=== PATIENT | female | born 1995 ===

== ENCOUNTER 2024-08-30 07:54 | Inpatient (IN) | payer OTHER ==
[~2024-08-30] VITALS: Ht 172.7 cm; Wt 107.0 kg
[2024-08-30] MEDS ORDERED: LACTATED RINGER'S 1,000 ML IV SCH (08:00)
[2024-08-30] MEDS ORDERED: OXYTOCIN/0.9 % SODIUM CHLORIDE 500 ML IV SCH ×2 (08:00→16:15)
[2024-08-30] MEDS ORDERED: MAGNESIUM HYDROXIDE/AL HYDROX 30 ML CUP PO PRN ×2 (08:00→16:15)
[2024-08-30] MEDS ORDERED: LACTATED RINGER'S 1,000 ML IV PRN (08:00)
[2024-08-30] MEDS ORDERED: CALCIUM CARBONATE 500 MG CHEW PO PRN ×2 (08:00→16:15)
[2024-08-30 08:58] LABS: HEMATOCRIT 32.4 % (35.0-50.0); HEMOGLOBIN 10.9 g/dL (12.0-18.0); MCH 26.5 (27-36); MCHC 33.6 g/dl (30-36); MCV 78.9 fl (81-99); RBC 4.1 M/ul (4.3-5.7); RDW 13.8 (10.5-15.0)
[2024-08-30 10:19] LABS: ABO A; ANTIBODY SCREEN NEGATIVE; RH POSITIVE
[2024-08-30 10:27] LABS: AMPHETAMINES, URINE NEGATIVE (NEGATIVE); BARBITURATES, URINE NEGATIVE (NEGATIVE); BENZODIAZEPINE, URINE NEGATIVE (NEGATIVE); BUPRENORPHINE, URINE NEGATIVE (NEGATIVE); CANNABINOID, URINE NEGATIVE (NEGATIVE); COCAINE, URINE NEGATIVE (NEGATIVE); ECSTASY, URINE NEGATIVE (NEGATIVE); FENTANYL, URINE NEGATIVE (NEGATIVE); METHADONE, URINE NEGATIVE (NEGATIVE); OPIATES, URINE NEGATIVE (NEGATIVE); OXYCODONE, URINE NEGATIVE (NEGATIVE); PHENCYCLIDINE, URINE NEGATIVE (NEGATIVE)
[2024-08-30 11:05] LABS: IS CROSSMATCH COMPATIBLE
[2024-08-30 11:06] LABS: IS CROSSMATCH COMPATIBLE
[2024-08-30 12:19] LABS: ABO A; RH POSITIVE
[2024-08-30 12:46] VITALS: BP 133/74
[2024-08-30] MEDS ORDERED: TRANEXAMIC ACID IN NACL,ISO-OS 100 ML IV ONE (13:09)
[2024-08-30] MEDS ORDERED: IBUPROFEN 600 MG TAB PO PRN (16:15)
[2024-08-30] MEDS ORDERED: ACETAMINOPHEN 325 MG TAB PO PRN (16:15)
[2024-08-30] MEDS ORDERED: MAGNESIUM HYDROXIDE 30 ML UDC PO PRN (16:15)
[2024-08-30] MEDS ORDERED: HYDROCORTISONE ACETATE 25 MG SUPP PR PRN (16:15)
[2024-08-30] MEDS ORDERED: BENZOCAINE 60 ML AEROSOL TOP PRN (16:15)
[2024-08-30] MEDS ORDERED: WITCH HAZEL/GLYCERIN 1 EA PAD TOP PRN (16:15)
[2024-08-30] MEDS ORDERED: SENNOSIDES/DOCUSATE 1 EA TAB PO SCH (21:00)
[2024-08-31 06:28] LABS: HEMOGLOBIN 10.2 g/dL (12.0-18.0); MCHC 34.1 g/dl (30-36); MCV 79.1 fl (81-99); RBC 3.8 M/ul (4.3-5.7); RDW 14.2 (10.5-15.0)
--- NOTE | 2024-08-31 08:47 | PR ---
[facility] [address] [facility] [place], [place] [address] Signed PP Progress Notes Datetime Report Generated by CPN: 08/31/2024 08:47 SUBJECTIVE: [id number] Pain: Within Normal Limits Nausea/Vomiting: Denies Flatus: Yes Vital Signs: [id number] Vital Signs: Reviewed; Within Normal Limits EXAM: Ongoing Cardiovascular: Normal Respiratory: Not Done Abdomen/Uterus: Normal Lochia: Normal Vulva/Perineum: Normal Breasts: Normal CVA Tenderness: Not Done Extremities: Normal Incision: Not Applicable Progress: Normal IMPRESSION/PLAN/PROCEDURES: [id number] Impression: Normal Progression Plan: Continue Present Management; Discharge Progress Notes: Recovering well. Pain and lochia WNL. Desires D/C home Signing Physician: Megan Barrientos MD Copies: ~ *Electronically Signed* 08/31/24 0847 MEGAN BARRIENTOS MD PATIENT NAME: HELEN PEREZ PROGRESS NOTE DATE OF : 94 PHYSICIAN: MEGAN BARRIENTOS MD RPT #: [id number] REPORT IS CONFIDENTIAL AND NOT TO BE RELEASED WITHOUT AUTHORIZATION
== END 2024-08-31 16:45 | disposition home or self-care (01) | DRG 807 ==
LOC: FBC 07:54
PROVIDERS: ADMIT Obstetrics & Gynecology; ATTEND Obstetrics & Gynecology
PROC: 10E0XZZ Delivery of Products of Conception, External Approach (ICD-10-PCS; principal; 2024-08-30)
PROC: 0UQGXZZ Repair Vagina, External Approach (ICD-10-PCS; 2024-08-30)
PROC: 10907ZC Drainage of Amniotic Fluid, Therapeutic from Products of Conception, Via Natural or Artificial Opening (ICD-10-PCS; 2024-08-30)
PROC: 3E033VJ Introduction of Other Hormone into Peripheral Vein, Percutaneous Approach (ICD-10-PCS; 2024-08-30)
PROC: 4A1HXCZ Monitoring of Products of Conception, Cardiac Rate, External Approach (ICD-10-PCS; 2024-08-30)
DX: O71.4 Obstetric high vaginal laceration alone (principal); Z37.0 Single live birth; Z3A.40 40 weeks gestation of pregnancy; Z88.2 Allergy status to sulfonamides
CPT/HCPCS: 36415; 80307; 85027; 86850; 86900; 86901; 86922; A9270; J7121